=== PATIENT | male | born 1960 | race Caucasian/White ===

== ENCOUNTER 2017-03-20 18:12 | Emergency (ER) | payer BC, OTHER ==
[~2017-03-20] VITALS: Ht 188 cm; Wt 75.0 kg
[~2017-03-20 18:12] MED LIST: CELE20TA; CLON1 PO; HYDR10SO PO; LISI2.5T3 PO; PRAV10 PO; SOMA250T
[2017-03-20 18:13] VITALS: BP 179/105; PULSE 83; RESP 15; TEMP 98.6; O2SAT 96
--- NOTE | 2017-03-20 18:50 | RADRPT ---
EXAM DATE/TIME: 03/20/2017 18:30 [place] COMPARISON: No previous studies available for comparison. INDICATIONS : Hemoptysis. MEDICAL HISTORY : Hypertension. Smoker. SURGICAL HISTORY : None. ENCOUNTER: Initial ACUITY: 4 - 6 months PAIN SCORE: 0/10 LOCATION: Bilateral chest FINDINGS: PA and lateral views of the chest demonstrate minimal density in the lingula. Right lung clear. Heart normal size. The cardiomediastinal contours are unremarkable. Osseous structures are intact. CONCLUSION: Minimal lingular infiltrate. Ludwig Simon MD on March 20, 2017 at 18:47 Board Certified Radiologist. This report was verified electronically.
--- NOTE | 2017-03-20 20:01 | PD ---
Physical Exam Date Seen by Provider: Mar 20, 2017 Time Seen by Provider: 18:17 Narrative Patient seen in triage. He reports hemoptysis for 5 months. He states that he originally thought the blood was coming from a tooth, but now he is unsure. He denies any chest pain or shortness of breath. Data Data Last Documented VS Vital Signs Date Time Temp Pulse Resp B/P (MAP) Pulse Ox O2 Delivery O2 Flow Rate FiO2 03/20/17 18:13 98.6 83 15 179/105 (129) 96 Orders Orders Chest, Pa & Lat (03/20/17 ) [facility] Medical Record Reviewed: Yes Supervised Visit with CECELIA: No Narrative Course Patient is seen in triage. Protocol orders are placed. Patient is awaiting bed. Patient left AMA before he could placed in a medical bed. Diagnosis Primary Impression: Left against medical advice Additional Impression: Cough Disposition: 07 AGAINST MEDICAL ADVICE Krissy Warner Mar 20, 2017 20:01
== END 2017-03-20 19:53 | disposition left against medical advice (07) ==
LOC: NED 18:12
DX: R05 Cough (principal)
CPT/HCPCS: 71046; 99283